=== PATIENT | female | born 1960 | race African-American/Black ===

== ENCOUNTER 2017-10-06 11:52 | Emergency (ER) | payer MEDICAID ==
[~2017-10-06] VITALS: Ht 177.8 cm; Wt 67.3 kg
[~2017-10-06 11:52] MED LIST: AMOXICILLIN 8751 TAB PO; COLACE 100100 MG/CAP PO; GLUCAGON EMERGEN1 M1 IM; GLUCOPHAGE; GLUCOPHAGE XR500 M1 PO; GLUCOPHAGE500 MG/TAB PO; LASIX 20MG TABL20 MG PO; LASIX 40MG TABL40 MG PO; LEADER CLE17 GM/Dose PO; LEVAQUIN 5500 MG/TA1 PO; LEVEMIR FLEX100 U/ML SQ; LEVEMIR100 U/ML SQ; LIDODERM 5% PATC1 EA TP; LISINOPRIL20 MG PO; LOVENOX 4040 MG/0.4 SQ; MIRALAX PA17 GM/Dose PO; NORVASC 5MG5 MG/TAB PO; NOVLOG SQ; NOVOLOG 100U100 U/M1 SQ; NOVOLOG FLEX100 U/ML SQ; PERCOCET 325 MG1 TA2 PO; PRINIVIL10 MG PO; PRINIVIL20 MG PO; PROTONIX 40MG T40 MG PO; SENNA-LAX8.6 MG PO; TYLENOL 325MG325 MG PO; ULTRAM 50MG TAB50 MG PO
[2017-10-06 11:54] VITALS: BP 122/73; TEMP 99
[2017-10-06 12:22] LABS: BASO # 0.1 (0.0-0.2); BASO % 0.9 % (0.0-2.0); EOS # 0.2 (0.0-0.7); EOS % 3.7 % (0-4.0); GRAN # 3.6 (1.4-6.5); GRAN % 55.5 % (42.2-75.2); HEMATOCRIT 29.1 % (37.0-47.0); HEMOGLOBIN 9.3 g/dl (12.5-16.0); LYMPH # 2.1 (1.2-3.4); LYMPH % 32.6 % (20.0-51.0); MEAN CELL VOLUME 85 fl (80.0-100.0); MEAN CORPUSCULAR HEMOGLOBIN 27 pg (27.0-31.0); MEAN CORPUSCULAR HGB CONC 32 g/dl (33.0-37.0); MEAN PLATELET VOLUME 10.1 fl (7.4-10.4); MONO # 0.5 (0.1-0.6); MONO % 7.1 % (1.7-9.3); PLATELET COUNT 250 K/mm3 (130-400); RED BLOOD COUNT 3.41 M/mm3 (4.10-5.30); REDCELL DISTRIBUTION WIDTH-CV 13.5 % (11.5-14.5)
[2017-10-06 12:35] LABS: ALBUMIN 3.7 gm/dL (3.5-5.0); BILIRUBIN,TOTAL 0.4 mg/dL (0.0-1.0); C-REACTIVE PROTEIN 0.8 mg/dL (0.0-0.9); CALCIUM 9.1 mg/dL (8.4-10.2); CREATININE, serum 0.86 mg/dL (0.52-1.25); POTASSIUM 3.8 mmol/L (3.4-5.0)
[2017-10-06 12:42] LABS: ERYTHROCYTE SEDIMENTATION RATE 96 mm/hr (0-30)
[2017-10-06 13:43] VITALS: PULSE 67
== END 2017-10-06 13:45 | disposition home or self-care (01) ==
LOC: COL.ER 11:52
PROVIDERS: Physician Assistant
DX: S61.001A Unspecified open wound of right thumb without damage to nail, initial encounter (principal); I10 Essential (primary) hypertension; E78.5 Hyperlipidemia, unspecified; E11.40 Type 2 diabetes mellitus with diabetic neuropathy, unspecified; Z98.890 Other specified postprocedural states; Z87.891 Personal history of nicotine dependence; Z79.4 Long term (current) use of insulin; X58.XXXA Exposure to other specified factors, initial encounter
CPT/HCPCS: J7030

== ENCOUNTER 2018-06-18 19:40 | Emergency (ER) | payer MEDICAID, OTHER ==
[~2018-06-18] VITALS: Ht 177.8 cm; Wt 63.6 kg
[2018-06-18 19:58] VITALS: TEMP 98.6
[2018-06-18] MEDS ORDERED: NEURONTIN300 MG/CAP PO (20:45)
[2018-06-18] MEDS ORDERED: SYNTHROID 0.0.025 MG PO (20:45)
[2018-06-18] MEDS ORDERED: LANTUS100 U/ML SQ (20:46)
[2018-06-18 21:41] LABS: BASO % 0.6 % (0.0-2.0); EOS # 0.2 (0.0-0.7); EOS % 2.6 % (0-4.0); GRAN # 4.5 (1.4-6.5); LYMPH # 1.6 (1.2-3.4); LYMPH % 23.2 % (20.0-51.0); MEAN CELL VOLUME 87 fl (80.0-100.0); MEAN CORPUSCULAR HGB CONC 32 g/dl (33.0-37.0); MEAN PLATELET VOLUME 10.4 fl (7.4-10.4); MONO # 0.6 (0.1-0.6); MONO % 8.5 % (1.7-9.3); PLATELET COUNT 256 K/mm3 (130-400)
[2018-06-18 21:44] LABS: HEMATOCRIT 30.4 % (37.0-47.0); HEMOGLOBIN 9.6 g/dl (12.5-16.0); MEAN CORPUSCULAR HEMOGLOBIN 27 pg (27.0-31.0)
[2018-06-18 21:55] LABS: ALBUMIN 3.8 gm/dL (3.5-5.0); BILIRUBIN,TOTAL 0.4 mg/dL (0.0-1.0); C-REACTIVE PROTEIN 2.2 mg/dL (0.0-0.9); CALCIUM 8.8 mg/dL (8.4-10.2); CREATININE, serum 0.96 mg/dL (0.52-1.25); POTASSIUM 4.4 mmol/L (3.4-5.0); TOTAL PROTEIN 8.5 gm/dL (6.4-8.2)
[2018-06-18 22:35] LABS: COLLECTION METHOD CLEAN CATCH
[2018-06-18 22:42] LABS: PH 7 (5-8); SQUAMOUS EPITHELIAL 0-2 /hpf; URINE APPEARANCE Clear; URINE BACTERIA None Seen /hpf; URINE BILIRUBIN Negative (NEGATIVE); URINE BLOOD 1+ (NEGATIVE); URINE COLOR Colorless; URINE GLUCOSE 3+ (NEGATIVE); URINE KETONE Negative (NEGATIVE); URINE LEUKOCYTE ESTERASE Trace (NEGATIVE); URINE NITRATE Negative (NEGATIVE); URINE PROTEIN(semi-quant) Negative (NEGATIVE); URINE UROBILINOGEN Negative (NEGATIVE)
[2018-06-18] MEDS ORDERED: ZESTORETIC 25 M1 TAB PO (23:36)
[2018-06-19 02:20] VITALS: BP 182/114; PULSE 76
== END 2018-06-19 02:23 | disposition home or self-care (01) ==
LOC: COL.ER 19:40
PROVIDERS: Emergency Medicine
DX: S91.101A Unspecified open wound of right great toe without damage to nail, initial encounter (principal); I10 Essential (primary) hypertension; D64.9 Anemia, unspecified; E11.40 Type 2 diabetes mellitus with diabetic neuropathy, unspecified; E11.65 Type 2 diabetes mellitus with hyperglycemia; Z79.4 Long term (current) use of insulin; X58.XXXA Exposure to other specified factors, initial encounter
CPT/HCPCS: J1815; J7030

== ENCOUNTER 2020-02-23 11:20 | Emergency (ER) | payer MEDICAID ==
[~2020-02-23] VITALS: Ht 177.8 cm; Wt 70.9 kg
[~2020-02-23 11:20] MED LIST changes: +LANTUS100 U/ML SQ; +NEURONTIN300 MG/CAP PO; +SYNTHROID 0.0.025 MG PO; +ZESTORETIC 25 M1 TAB PO
[2020-02-23 12:17] LABS: BASO % 0.2 % (0.0-2.0); EOS % 0.4 % (0-4.0); GRAN # 3.7 (1.4-6.5); GRAN % 70.9 % (42.2-75.2); HEMOGLOBIN 11.1 g/dl (12.5-16.0); LYMPH # 1.1 (1.2-3.4); LYMPH % 20.5 % (20.0-51.0); MEAN CELL VOLUME 88 fl (80.0-100.0); MEAN CORPUSCULAR HEMOGLOBIN 28 pg (27.0-31.0); MEAN CORPUSCULAR HGB CONC 32 g/dl (33.0-37.0); MEAN PLATELET VOLUME 10.3 fl (7.4-10.4); MONO # 0.4 (0.1-0.6); MONO % 7.4 % (1.7-9.3); PLATELET COUNT 219 K/mm3 (130-400); RED BLOOD COUNT 3.98 M/mm3 (4.10-5.30)
[2020-02-23 12:19] LABS: HEMATOCRIT 35.1 % (37.0-47.0)
[2020-02-23 12:27] LABS: ALANINE AMINOTRANSFERASE 39 U/L (4-34); ALBUMIN 4.5 gm/dL (3.5-5.0); ALKALINE PHOSPHATASE 165 U/L (50-136); ANION GAP 14 mmol/L (7-16); AST,SGOT 33 U/L (15-37); BILIRUBIN,TOTAL 0.9 mg/dL (0.0-1.0); BLOOD UREA NITROGEN 22 mg/dL (7-17); CALCIUM 9.4 mg/dL (8.4-10.2); CARBON DIOXIDE 27 mmol/L (22-30); CHLORIDE 98 mmol/L (98-107); CREATININE, serum 1.34 (0.52-1.25); GLUCOSE 205 mg/dL (74-106); LIPASE 55 U/L (23-300); SODIUM 139 mmol/L (137-145); TOTAL PROTEIN 9.1 gm/dL (6.4-8.2)
[2020-02-23 12:38] LABS: TROPONIN-I < 0.012 ng/mL (0.000-0.035)
[2020-02-23 12:41] LABS: COLLECTION METHOD CLEAN CATCH
[2020-02-23 12:49] LABS: MUCOUS Present /lpf; PH 8 (5-8); SQUAMOUS EPITHELIAL 0-2 /hpf; URINE APPEARANCE Clear; URINE BACTERIA None Seen /hpf; URINE BILIRUBIN Negative (NEGATIVE); URINE BLOOD 1+ (NEGATIVE); URINE COLOR Colorless; URINE GLUCOSE 2+ (NEGATIVE); URINE KETONE Trace (NEGATIVE); URINE LEUKOCYTE ESTERASE Negative (NEGATIVE); URINE NITRATE Negative (NEGATIVE); URINE PROTEIN(semi-quant) 2+ (NEGATIVE); URINE UROBILINOGEN Negative (NEGATIVE); URINE WBC 0-2 /hpf
[2020-02-23] MEDS ORDERED: PHENERGAN25 MG RC (14:51)
[2020-02-23] MEDS ORDERED: PROTONIX 40MG T40 MG PO (14:51)
[2020-02-23] MEDS ORDERED: BENTYL 20MG20 MG/TAB PO (14:51)
[2020-02-23 15:25] VITALS: BP 146/107; PULSE 90; TEMP 98
== END 2020-02-23 15:30 | disposition home or self-care (01) ==
LOC: COL.ER 11:20
PROVIDERS: Emergency Medicine
DX: R94.4 Abnormal results of kidney function studies (principal); R10.9 Unspecified abdominal pain; E11.51 Type 2 diabetes mellitus with diabetic peripheral angiopathy without gangrene; I10 Essential (primary) hypertension; Z88.0 Allergy status to penicillin; Z88.2 Allergy status to sulfonamides; Z79.4 Long term (current) use of insulin

== ENCOUNTER → 2020-05-22 | Outpatient (CLI) | payer MEDICAID ==
[~2020-05-22] MED LIST changes: +BENTYL 20MG20 MG/TAB PO; +PHENERGAN25 MG RC
== END ==
LOC: COL.RAD 10:19
DX: K29.70 Gastritis, unspecified, without bleeding (principal); K21.9 Gastro-esophageal reflux disease without esophagitis

== ENCOUNTER 2020-06-15 13:59 | Emergency (ER) | payer MEDICAID ==
[~2020-06-15] VITALS: Ht 177.8 cm; Wt 59.1 kg
[2020-06-15 14:58] LABS: COLLECTION METHOD CLEAN CATCH
[2020-06-15 15:01] LABS: BASO % 1.1 % (0.0-2.0); EOS # 0.1 (0.0-0.7); EOS % 1.9 % (0-4.0); GRAN # 1.8 (1.4-6.5); GRAN % 48.1 % (42.2-75.2); HEMOGLOBIN 10.3 g/dl (12.5-16.0); LYMPH # 1.6 (1.2-3.4); LYMPH % 41.9 % (20.0-51.0); MEAN CELL VOLUME 90 fl (80.0-100.0); MEAN CORPUSCULAR HEMOGLOBIN 29 pg (27.0-31.0); MEAN CORPUSCULAR HGB CONC 32 g/dl (33.0-37.0); MEAN PLATELET VOLUME 11.4 fl (7.4-10.4); MONO # 0.3 (0.1-0.6); MONO % 6.7 % (1.7-9.3); PLATELET COUNT 231 K/mm3 (130-400); RED BLOOD COUNT 3.54 M/mm3 (4.10-5.30); REDCELL DISTRIBUTION WIDTH-CV 14.2 % (11.5-14.5)
[2020-06-15 15:06] LABS: HEMATOCRIT 31.9 % (37.0-47.0)
[2020-06-15 15:21] LABS: PH 6 (5-8); SQUAMOUS EPITHELIAL 0-2 /hpf; URINE APPEARANCE Clear; URINE BACTERIA None Seen /hpf; URINE BILIRUBIN Negative (NEGATIVE); URINE BLOOD Negative (NEGATIVE); URINE COLOR Straw; URINE GLUCOSE 3+ (NEGATIVE); URINE KETONE 1+ (NEGATIVE); URINE LEUKOCYTE ESTERASE Negative (NEGATIVE); URINE NITRATE Negative (NEGATIVE); URINE PROTEIN(semi-quant) 1+ (NEGATIVE); URINE RBC 0-2 /hpf; URINE UROBILINOGEN Negative (NEGATIVE)
[2020-06-15 15:44] LABS: ALANINE AMINOTRANSFERASE 10 U/L (4-34); ALKALINE PHOSPHATASE 93 U/L (50-136); AMYLASE 43 U/L (30-110); ANION GAP 19 mmol/L (7-16); AST,SGOT 18 U/L (15-37); BILIRUBIN,TOTAL 0.5 mg/dL (0.0-1.0); BLOOD UREA NITROGEN 23 mg/dL (7-17); CALCIUM 9.2 mg/dL (8.4-10.2); CARBON DIOXIDE 18 mmol/L (22-30); CHLORIDE 99 mmol/L (98-107); CREATININE, serum 1.42 (0.52-1.25); LIPASE 106 U/L (23-300); POTASSIUM 4.5 mmol/L (3.4-5.0); SODIUM 136 mmol/L (137-145); TOTAL PROTEIN 8.3 gm/dL (6.4-8.2)
[2020-06-15 15:45] LABS: C-REACTIVE PROTEIN < 0.5 mg/dL (0.0-0.9)
[2020-06-15 15:46] LABS: GLUCOSE 550 mg/dL (74-106)
[2020-06-15 16:23] LABS: ARTERIAL BLD GAS O2 SATURATION 95.1 % (92-100); ARTERIAL BLD GAS TCO2 CT 18.8; ARTERIAL BLOOD GAS BASE EXCESS -8.4 (-2-2); ARTERIAL BLOOD GAS HCO3 17.6 meq/L (22-26); ARTERIAL BLOOD GAS PCO2 37.9 mmHg (35-45); ARTERIAL BLOOD GAS PO2 81.2 mmHg (80-100); ARTERIAL BLOOD GAS pH 7.29 (7.35-7.45)
[2020-06-15 17:32] LABS: CALCIUM 8.8 mg/dL (8.4-10.2); CREATININE, serum 1.17 (0.52-1.25); POTASSIUM 4.4 mmol/L (3.4-5.0)
[2020-06-15 20:12] VITALS: BP 148/99; PULSE 88; TEMP 97.4
== END 2020-06-15 20:25 | disposition short-term general hospital (02) ==
LOC: COL.ER 13:59
PROVIDERS: Emergency Medicine; Nurse Practitioner Primary Care
DX: E11.10 Type 2 diabetes mellitus with ketoacidosis without coma (principal); E11.40 Type 2 diabetes mellitus with diabetic neuropathy, unspecified; T38.3X6A Underdosing of insulin and oral hypoglycemic [antidiabetic] drugs, initial encounter; I10 Essential (primary) hypertension; E03.9 Hypothyroidism, unspecified; Z88.0 Allergy status to penicillin; Z91.128 Patient's intentional underdosing of medication regimen for other reason; Z88.2 Allergy status to sulfonamides; Z87.891 Personal history of nicotine dependence; Z79.4 Long term (current) use of insulin; Z79.890 Hormone replacement therapy
CPT/HCPCS: J1815; J7030

== ENCOUNTER 2021-06-14 13:00 | Inpatient (IN) | payer MEDICAID ==
[~2021-06-14] VITALS: Ht 177.8 cm; Wt 66.1 kg
[~2021-06-14 13:00] MED LIST changes: -LANTUS100 U/ML SQ
[2021-06-14] MEDS ORDERED: ERY-TAB500 MG PO (14:41)
[2021-06-14 15:38] LABS: BASO % 0.8 % (0.0-2.0); EOS # 0.2 K/mm3 (0.0-0.7); EOS % 4.4 % (0.0-4.0); GRAN # 3.2 K/mm3 (1.4-6.5); GRAN % 61.6 % (42.2-75.2); LYMPH # 1.3 K/mm3 (1.2-3.4); LYMPH % 24.6 % (20.0-51.0); MEAN CELL VOLUME 86 fl (80.0-100.0); MEAN CORPUSCULAR HGB CONC 31 g/dl (33.0-37.0); MEAN PLATELET VOLUME 11.5 fl (7.4-10.4); MONO # 0.4 K/mm3 (0.1-0.6); PLATELET COUNT 278 K/mm3 (130-400); RED BLOOD COUNT 3.03 M/mm3 (4.10-5.30); REDCELL DISTRIBUTION WIDTH-CV 13.6 % (11.5-14.5)
[2021-06-14 15:41] LABS: HEMOGLOBIN 8.1 g/dl (12.5-16.0); MEAN CORPUSCULAR HEMOGLOBIN 27 pg (27-31)
[2021-06-14 16:03] LABS: ACETONE,SERUM SMALL; ALANINE AMINOTRANSFERASE 19 U/L (0-55); ALBUMIN 3.1 gm/dL (3.4-4.8); ALKALINE PHOSPHATASE 121 U/L (40-150); ANION GAP 21 mmol/L (7-16); AST,SGOT 14 U/L (5-34); BILIRUBIN,TOTAL 0.3 mg/dL (0.2-1.2); BLOOD UREA NITROGEN 25 mg/dL (10-20); CALCIUM 9.5 mg/dL (8.4-10.2); CARBON DIOXIDE 17 mmol/L (23-31); CHLORIDE 100 mmol/L (98-107); CREATININE, serum 2.39 mg/dL (0.57-1.11); LIPASE 20 U/L (8-78); POTASSIUM 4.9 mmol/L (3.5-4.5); SODIUM 138 mmol/L (136-145); TOTAL PROTEIN 9.1 gm/dL (6.2-8.1)
[2021-06-14 16:10] LABS: GLUCOSE 626 mg/dL (70-99)
[2021-06-14 18:45] LABS: CREATININE, serum 2.15 mg/dL (0.57-1.11); POTASSIUM 3.9 mmol/L (3.5-4.5)
[2021-06-14 19:12] LABS: TSH w REFLEX 1.582 uIU/mL (0.350-4.940)
[2021-06-14 19:20] LABS: TROPONIN-I 0.09 ng/mL (0.00-0.033)
--- NOTE | 2021-06-14 19:27 | NUR ---
Received report from ED nurse, Deisi.
[2021-06-14 19:39] VITALS: BP 157/96; PULSE 68; TEMP 98.2
--- NOTE | 2021-06-14 19:39 | NUR ---
Patient arrives to ICU room 6 via ED stretcher. Patient is alert and oriented. She is able to pivot transfer with one person assist, tolerating well. Initial vitals within normal limits; she is on room air. She reports 8/10 sharp stomach pain that is worse with movement and position changes. She arrives receiving insulin drip at 3 units/hr to a peripheral 22G to the LAC. Last BG of 324 at 1920. She also has a saline locked 20G peripheral IV to the left wrist. Vicky, hospitalist, aware of patient's arrival.
--- NOTE | 2021-06-14 20:00 | NUR ---
Patient's belongings include a single brown right shoe and black blanket. Patient reports having reading glasses and bilateral hearing aids, but that she did not bring either with her. She denies having dentures, partials, plates, or removable jewelry on her person at this time. She states she did not bring a purse, wallet, or cellphone with her.
[2021-06-14 20:48] LABS: COLLECTION METHOD CLEAN CATCH
[2021-06-14 20:48] LABS: CALCIUM 9.2 mg/dL (8.4-10.2); CREATININE, serum 2.04 mg/dL (0.57-1.11); MAGNESIUM 1.7 mg/dL (1.6-2.6); POTASSIUM 3.7 mmol/L (3.5-4.5)
[2021-06-14 20:57] LABS: PH 6 (5-8); SQUAMOUS EPITHELIAL 0-2 /hpf (0-10); URINE APPEARANCE Clear (CLEAR/HAZY); URINE BACTERIA None Seen /hpf (NONE SEEN); URINE BILIRUBIN Negative (NEGATIVE); URINE BLOOD Negative (NEGATIVE); URINE COLOR Straw (YELLOW); URINE GLUCOSE 3+ (NEGATIVE); URINE KETONE 1+ (NEGATIVE); URINE LEUKOCYTE ESTERASE Negative (NEGATIVE); URINE NITRATE Negative (NEGATIVE); URINE PROTEIN(semi-quant) 2+ (NEGATIVE); URINE RBC 0-2 /hpf (0-2); URINE UROBILINOGEN Negative (NEGATIVE)
[2021-06-14 22:19] LABS: CALCIUM 8.7 mg/dL (8.4-10.2); POTASSIUM 3.6 mmol/L (3.5-4.5)
[2021-06-15] VITALS: BP 115/63; PULSE 63; TEMP 97.9
[2021-06-15 00:39] LABS: CALCIUM 8.5 mg/dL (8.4-10.2); CREATININE, serum 1.99 mg/dL (0.57-1.11); POTASSIUM 3.5 mmol/L (3.5-4.5)
[2021-06-15 02:39] LABS: CALCIUM 8.5 mg/dL (8.4-10.2); CREATININE, serum 1.95 mg/dL (0.57-1.11); POTASSIUM 3.5 mmol/L (3.5-4.5)
[2021-06-15 04:00] VITALS: BP 138/88; PULSE 63; TEMP 97.6
[2021-06-15 05:58] LABS: MEAN CELL VOLUME 89 fl (80.0-100.0); MEAN CORPUSCULAR HGB CONC 30 g/dl (33.0-37.0); MEAN PLATELET VOLUME 10.2 fl (7.4-10.4); PLATELET COUNT 266 K/mm3 (130-400); RED BLOOD COUNT 2.76 M/mm3 (4.10-5.30); REDCELL DISTRIBUTION WIDTH-CV 13.7 % (11.5-14.5)
[2021-06-15 05:59] LABS: HEMATOCRIT 24.5 % (37.0-47.0); HEMOGLOBIN 7.4 g/dl (12.5-16.0); MEAN CORPUSCULAR HEMOGLOBIN 27 pg (27-31)
[2021-06-15 06:06] LABS: ALBUMIN 2.6 gm/dL (3.4-4.8); TOTAL PROTEIN 7.5 gm/dL (6.2-8.1)
[2021-06-15 08:00] VITALS: BP 186/115; PULSE 68; TEMP 98
[2021-06-15 11:27] LABS: CALCIUM 8.5 mg/dL (8.4-10.2); CREATININE, serum 1.61 mg/dL (0.57-1.11); POTASSIUM 4.7 mmol/L (3.5-4.5)
[2021-06-15 12:00] VITALS: BP 193/109; PULSE 65; TEMP 98
--- NOTE | 2021-06-15 15:00 | NUR ---
SW met with patient at bedside to complete intake. Patient's Rayshawn ([phone]) present at bedside.Patient reports that she currently lives at home with her . She reports that her helps her with some of her ADL's but that she does have a home health service coming in to also provide her care that was established after her last admission from [facility]. Both the patient and her are unaware of what agency it is but the patient states that her daughter would know. Patient utilizes a wheelchair and a walker at home to assist with ambulation. She has no oxygen needs at home. PCP is Dr. Rios and she utlizes [facility] pharmacy for medications with no cost difficulty. Patient reports that she does have a DPOA- estbalished listing both her Rayshawn and her daughter Amanda Mcgraw ([phone]) and that [facility] would have a copy.
[2021-06-15 16:00] VITALS: BP 150/87; PULSE 68; TEMP 97.7
--- NOTE | 2021-06-15 19:00 | NUR ---
Received report from SUN Bolton.
[2021-06-15 20:00] VITALS: BP 128/74; PULSE 74; TEMP 99.1
[2021-06-16] VITALS: BP 125/81; PULSE 72; TEMP 98.6
[2021-06-16 04:00] VITALS: BP 158/93; PULSE 69; TEMP 98.1
[2021-06-16 05:31] LABS: BASO % 0.6 % (0.0-2.0); EOS # 0.3 K/mm3 (0.0-0.7); EOS % 5.3 % (0.0-4.0); GRAN # 2.5 K/mm3 (1.4-6.5); GRAN % 50.7 % (42.2-75.2); LYMPH # 1.4 K/mm3 (1.2-3.4); LYMPH % 29.4 % (20.0-51.0); MEAN CELL VOLUME 89 fl (80.0-100.0); MEAN CORPUSCULAR HGB CONC 30 g/dl (33.0-37.0); MEAN PLATELET VOLUME 10.4 fl (7.4-10.4); MONO # 0.7 K/mm3 (0.1-0.6); MONO % 13.6 % (1.7-9.3); PLATELET COUNT 236 K/mm3 (130-400); RED BLOOD COUNT 3.02 M/mm3 (4.10-5.30); REDCELL DISTRIBUTION WIDTH-CV 14.1 % (11.5-14.5)
[2021-06-16 05:42] LABS: CALCIUM 8.6 mg/dL (8.4-10.2); CREATININE, serum 1.73 mg/dL (0.57-1.11); POTASSIUM 4.5 mmol/L (3.5-4.5)
[2021-06-16 06:08] LABS: HEMATOCRIT 26.9 % (37.0-47.0); HEMOGLOBIN 8.1 g/dl (12.5-16.0); MEAN CORPUSCULAR HEMOGLOBIN 27 pg (27-31)
--- NOTE | 2021-06-16 07:42 | NUR ---
RECEIVED BEDSIDE SHIFT REPORT FROM SUN HUBER. PATIENT IN BED RESTING WITH EYES CLOSED. CALL LIGHT WITHIN REACH. PATIENT HYPERTENSIVE BUT OTHERWISE STABLE. INT SITES INTACT. NO COMPLAINTS AT THIS TIME.
[2021-06-16 08:00] VITALS: BP 102/65; PULSE 70; TEMP 97.8
--- NOTE | 2021-06-16 09:07 | NUR ---
DR. KEITH PHYSICIAN'S ROUGHER MERCHANT MILL AT BEDSIDE. DISCUSSED A PLAN OF CARE FOR MANAGING ABDOMINAL PAIN. SAID HE WOULD BE BACK TO ANSWER QUESTIONS THIS AFTERNOON WHEN FAMILY ARRIVES.
--- NOTE | 2021-06-16 09:39 | NUR ---
RECEIVED CALL FROM HE VELEZ WANTING TO PUT IN FOR A SURGICAL CONSULT. CONFIRMED WITH DOCTOR FOR REASON AND WHEN TO BE SEEN. PLACED ORDERS AND CALLED CONSULT TO DR. WHATLEY
--- NOTE | 2021-06-16 10:32 | NUR ---
DR. WHATLEY AT BEDSIDE. DISCUSSED PLAN FOR SURGERY.
[2021-06-16 12:00] VITALS: BP 126/84; PULSE 65
--- NOTE | 2021-06-16 12:45 | NUR ---
DR. TERESA AT BEDSIDE. DISCUSSED PLAN OF CARE AND PLAN FOR SURGERY THIS WEEK. UPDATE GIVEN
--- NOTE | 2021-06-16 14:09 | NUR ---
SPOKE TO DONTAE (DAUGHTER) ON THE PHONE AND GAVE UPDATE REGARDING CURRENT PATIENT'S STATUS AND PLAN OF CARE.
[2021-06-16 16:00] VITALS: BP 139/82; PULSE 71; TEMP 98.2
[2021-06-16 19:41] VITALS: BP 132/71; PULSE 74; TEMP 98.7
[2021-06-17 00:40] VITALS: BP 168/90; PULSE 73; TEMP 97.4
[2021-06-17 04:13] VITALS: BP 149/94; PULSE 73; TEMP 97.8
--- NOTE | 2021-06-17 06:00 | NUR ---
ASSESSMENT COMPLETE FOR THIS SHIFT. PT RESTING IN BED TALKING TO HER SON OVER THE PHONE. PT DENIED PALPITATIONS, N,V,D, SOB OR DIZZINESS. AROUND 0240HRS, PT COMPLAINED OF ABD PAIN. PT GIVEN MORPHINE FOR PAIN. PT FELT MORPHINE RELIEVED PAIN. PT EXPRESSED NO OTHER NEEDS AT THIS TIME. CALL LIGHT WITHIN REACH.
[2021-06-17 06:03] LABS: BASO % 0.7 % (0.0-2.0); EOS # 0.2 K/mm3 (0.0-0.7); EOS % 4.5 % (0.0-4.0); GRAN # 2.3 K/mm3 (1.4-6.5); GRAN % 52.3 % (42.2-75.2); LYMPH # 1.4 K/mm3 (1.2-3.4); LYMPH % 30.9 % (20.0-51.0); MEAN CELL VOLUME 90 fl (80.0-100.0); MEAN CORPUSCULAR HGB CONC 30 g/dl (33.0-37.0); MEAN PLATELET VOLUME 9.9 fl (7.4-10.4); MONO # 0.5 K/mm3 (0.1-0.6); MONO % 11.4 % (1.7-9.3); PLATELET COUNT 261 K/mm3 (130-400); RED BLOOD COUNT 3.12 M/mm3 (4.10-5.30); REDCELL DISTRIBUTION WIDTH-CV 14.2 % (11.5-14.5)
[2021-06-17 06:16] LABS: ANION GAP 9 mmol/L (7-16); BLOOD UREA NITROGEN 16 mg/dL (10-20); CALCIUM 8.9 mg/dL (8.4-10.2); CARBON DIOXIDE 24 mmol/L (23-31); CHLORIDE 106 mmol/L (98-107); CREATININE, serum 1.74 mg/dL (0.57-1.11); GLUCOSE 153 mg/dL (70-99); POTASSIUM 4.4 mmol/L (3.5-4.5); SODIUM 139 mmol/L (136-145)
[2021-06-17 06:30] LABS: TROPONIN-I < 0.010 ng/mL (0.00-0.033)
[2021-06-17 06:33] LABS: HEMATOCRIT 28.1 % (37.0-47.0); HEMOGLOBIN 8.3 g/dl (12.5-16.0); MEAN CORPUSCULAR HEMOGLOBIN 27 pg (27-31)
[2021-06-17 08:55] VITALS: BP 160/82; PULSE 71; TEMP 98
[2021-06-17] MEDS ORDERED: AMLODIPINE BESYLATE/ PO (09:58)
[2021-06-17] MEDS ORDERED: SYNTHROID0.1 MG/TAB PO (09:59)
[2021-06-17] MEDS ORDERED: REGLAN 10MG10 MG/TAB PO (10:03)
[2021-06-17] MEDS ORDERED: TYLENOL 325MG325 MG PO (10:04)
[2021-06-17] MEDS ORDERED: COREG12.5 MG PO (10:05)
[2021-06-17] MEDS ORDERED: GRALISE300 MG PO (10:07)
[2021-06-17] MEDS ORDERED: NOVOLOG FLEX100 U/ML SQ (10:09)
[2021-06-17] MEDS ORDERED: ZOLOFT 100MG100 MG PO (10:13)
[2021-06-17] MEDS ORDERED: CATAPRES-TTS 10.1 M1 TD (10:15)
--- NOTE | 2021-06-17 10:42 | NUR ---
PT SITTING UP IN BED. MORNING MEDICATIONS GIVEN. SHIFT ASSESSMENT COMPLETED. PT REPORTS ABDOMINAL PAIN IN THE CENTER OF ABDOMEN. UPDATED ON POC. WILL CONTINUE TO MONITOR.
[2021-06-17 11:31] VITALS: BP 169/91; PULSE 73; TEMP 98
--- NOTE | 2021-06-17 16:13 | NUR ---
Real Estate Firm Manager contacted Hospitalist and requested PT/OT. SW then contacted patient's daughter to inquire about Home Health. Patient's daughter believes patient receives services through [facility] but will check on this and follow up.
--- NOTE | 2021-06-17 16:23 | NUR ---
Converter Skimmer spoke with Sandy at [facility] who confirmed patient receives services through them.
[2021-06-17 17:27] VITALS: BP 130/74; PULSE 70; TEMP 97.9
--- NOTE | 2021-06-17 18:27 | NUR ---
CONSENT SIGNED AND PLACED ON PT CHART. PT TOLERATING SOME OF DINNER. POC REVIEWED. WILL PASS ALONG REPORT TO ONCOMING RN.
[2021-06-17 20:56] VITALS: BP 127/67; PULSE 66; TEMP 97.9
[2021-06-18] VITALS (14 sets, daily range): BP systolic 107–177; BP diastolic 57–91; PULSE 61–76; TEMP 97.3–98.6
--- NOTE | 2021-06-18 06:30 | NUR ---
ASSESSMENT COMPLETE FOR THIS SHIFT. PT RESTING IN BED TALKING TO FAMILY OVER THIS PHONE. PT COMPLAINED OF ABD PAIN. PT GIVEN TYLENOL FOR PAIN. PT STATED SHE FELT THE TYLENOL WAS NOT EFFECTIVE, HOWEVER, THE MORPHINE GAVE HER NIGHTMARES, SO SHE DID NOT WANT ANYMORE OF THAT. PT DENIED PALPITATIONS, N,V,D, SOB OR DIZZINESS. PT'S CALLED, CONCERNED ABOUT THE EFFECTS OF THE MORPHINE, GIVEN THE NIGHT BEFORE. I ASSURED HIM, PT WAS NOT GIVEN ANY MORPHINE TONIGHT. PT HAS BEEN NPO AFTER MIDNIGHT. PT EXPRESSED NO OTHER NEEDS AT THIS TIME. CALL LIGHT WITHIN REACH.
[2021-06-18 06:48] LABS: BASO % 0.8 % (0.0-2.0); EOS # 0.2 K/mm3 (0.0-0.7); EOS % 4.5 % (0.0-4.0); GRAN # 1.3 K/mm3 (1.4-6.5); GRAN % 35.3 % (42.2-75.2); LYMPH # 1.8 K/mm3 (1.2-3.4); LYMPH % 47.5 % (20.0-51.0); MEAN CORPUSCULAR HGB CONC 32 g/dl (33.0-37.0); MEAN PLATELET VOLUME 11.1 fl (7.4-10.4); MONO # 0.4 K/mm3 (0.1-0.6); MONO % 11.6 % (1.7-9.3); PLATELET COUNT 202 K/mm3 (130-400); RED BLOOD COUNT 2.68 M/mm3 (4.10-5.30); REDCELL DISTRIBUTION WIDTH-CV 13.7 % (11.5-14.5)
[2021-06-18 06:52] LABS: HEMATOCRIT 22.7 % (37.0-47.0); HEMOGLOBIN 7.3 g/dl (12.5-16.0); MEAN CORPUSCULAR HEMOGLOBIN 27 pg (27-31)
[2021-06-18 06:53] LABS: MEAN CELL VOLUME 85 fl (80.0-100.0)
[2021-06-18 06:56] LABS: CREATININE, serum 2.12 mg/dL (0.57-1.11); POTASSIUM 4.1 mmol/L (3.5-4.5)
--- NOTE | 2021-06-18 08:08 | NUR ---
PT RESTING IN BED. MORNING MEDICATIONS HELD, PT NPO SINCE MIDNIGHT FOR PROCEDURE. SHIFT ASSESSMENT COMPLETED. PT REPORTS ABDOMINAL PAIN AND NAUSEA, NO EMESIS. STATES SHE DID NOT SLEEP WELL DUE TO HALLUCINATIONS AFTER SHE RECIEVED A DOSE OF MORPHINE LAST NIGHT. MEDICATION ADDED TO THE ALLERGY LIST. DENIES ANY NEEDS AT THIS TIME. WILL CONTINUE TO MONITOR.
--- NOTE | 2021-06-18 13:17 | NUR ---
PT OFF UNIT FOR PROCEDURE AT THIS TIME.
--- NOTE | 2021-06-18 16:18 | NUR ---
PT ARRIVED BACK ON UNIT FOLLOWING PROCEDURE. PLACED ON POST OP VITALS, VSS. PT SLEEPING AT THIS TIME. WILL CONTINUE TO MONITOR.
--- NOTE | 2021-06-18 18:26 | NUR ---
PT STILL RESTING IN BED AND IS VERY DROWSY. REFUSES DINNER AND EVENING MEDICATIONS. B/P HIGH, HYDRALIZINE ADMINISTERED THROUGH IV. ALL OTHER VSS. WILL PASS ALONG REPORT TO ONCOMING RN.
--- NOTE | 2021-06-18 20:00 | NUR ---
Initial shift assessment done- VSS, resting quietly, denies pain, bandaids x3 to abdomen - dry and intact, no bowel sounds at this time, denies flatus, o2 at 1L/nc-sats 93-95%, has L/BKA, Tele on, C&DB done- IV fluids of NS at 75cc/hr. has not taken any po yet-still due to void post op
--- NOTE | 2021-06-18 23:20 | NUR ---
Up to BSC with 2 assists- voided without problems- FENA obtained per order- lab called will come and draw labs now- back to bed, o2 at 1L/nc, did take a few sips of water- states is nauseated- Zofran given- denies pain
[2021-06-19 00:35] LABS: CREATININE, serum 2.28 mg/dL (0.57-1.11)
[2021-06-19 01:21] LABS: FRACTIONAL EXCRETION OF NA+ 0.98 %
[2021-06-19 03:01] VITALS: BP 122/58; PULSE 77; TEMP 97.3
--- NOTE | 2021-06-19 04:54 | NUR ---
Has been resting quietly for the past 2-3 hours-- VSS, IV fluids remain at 75cc/hr, Tele on, Bandaids dry and intact to abd-
--- NOTE | 2021-06-19 06:00 | NUR ---
Taking some ice chips this morning- Abd remains soft-denies flatus and no bowel sounds heard at this time-- did do some c&db at this time. Bandaids x3 dry and intact to abdomen
[2021-06-19 06:35] LABS: BASO % 0.1 % (0.0-2.0); GRAN # 5.3 K/mm3 (1.4-6.5); GRAN % 78.2 % (42.2-75.2); LYMPH # 1.2 K/mm3 (1.2-3.4); LYMPH % 17.3 % (20.0-51.0); MEAN CELL VOLUME 89 fl (80.0-100.0); MEAN CORPUSCULAR HGB CONC 31 g/dl (33.0-37.0); MEAN PLATELET VOLUME 10.7 fl (7.4-10.4); MONO # 0.3 K/mm3 (0.1-0.6); PLATELET COUNT 253 K/mm3 (130-400); RED BLOOD COUNT 3.24 M/mm3 (4.10-5.30); REDCELL DISTRIBUTION WIDTH-CV 14.3 % (11.5-14.5)
[2021-06-19 06:36] LABS: HEMATOCRIT 28.7 % (37.0-47.0); HEMOGLOBIN 8.8 g/dl (12.5-16.0); MEAN CORPUSCULAR HEMOGLOBIN 27 pg (27-31)
[2021-06-19 06:42] LABS: ALBUMIN 2.5 gm/dL (3.4-4.8); BILIRUBIN,TOTAL 0.2 mg/dL (0.2-1.2); CALCIUM 8.2 mg/dL (8.4-10.2); CREATININE, serum 2.26 mg/dL (0.57-1.11); POTASSIUM 4.5 mmol/L (3.5-4.5); TOTAL PROTEIN 7.6 gm/dL (6.2-8.1)
[2021-06-19 07:49] VITALS: BP 143/81; PULSE 76; TEMP 97.8
--- NOTE | 2021-06-19 11:27 | NUR ---
PT RESTING UPON ENTRY THIS MORNING. ALERT AND ORIENTED BUT IS STILL SLEEPY AT TIMES. PT RATES PAIN AT INCISION SITES 7/10, BUT DOES NOT WANT PAIN MEDICATION. APPLIED ICE TO THE SITE TO SEE IF THE PAIN WOULD DECREASE. VITAL SIGNS STABLE. SHIFT ASSESSMENT COMPLETED. PT HAS A LEFT BELOW KNEE AMPUTATION. 2+ PULSE ON RIGHT FOOT. MEDICATION ADMINISTERED AND PT EDUCATED. PT REPORTS NO CONCERNS AT THIS TIME. WILL CONTINUE TO MONITOR.
[2021-06-19 12:03] VITALS: BP 112/62; PULSE 66; TEMP 98.1
--- NOTE | 2021-06-19 13:42 | NUR ---
Health Services Director attended clinical rounds with the team and patient will likely discharge tomorrow. SW contacted Sandy at [facility] to provide update. SW attempted to contact patient's daughter, however the voicemail box was full so SW was unable to leave a message.
--- NOTE | 2021-06-19 14:55 | NUR ---
Leland with physical therapy approached this case management social worker and advised that patient is open to being screened for rehab placement at [facility]. Leland states that patient is not agreeable to a [facility] facility. Worker contacted [place] with [facility] and gave a referral. Worker collaborated with Zoraida case management social worker, regarding the above information.
[2021-06-19 16:23] VITALS: BP 123/70; PULSE 69; TEMP 99
--- NOTE | 2021-06-19 16:58 | NUR ---
PT HAD UN-EVENTFUL DAY, NO ADVERSE EVENTS DURING THE SHIFT TODAY. ZOFRAN PRN X1 ADMINISTERED TODAY FOR NAUSEA. PT REPORTS NAUSEA IS BETTER. GOOD FOOD INTAKE, TOLERATING FOOD WELL. LAP SITES ARE CLEAN AND DRY. PT REPORTS TENDERNESS AT LAP SITES, BUT DOES NOT WANT PAIN MEDICATIONS. WILL CONTINUE TO MONITOR BOWEL SOUNDS. PT DID NOT HAVE A BOWEL MOVEMENT DURING THE DAY SHIFT TODAY. PT RESTING IN BED NOW. NO QUESTIONS REPORTED. NO CONCERNS AT THIS TIME, WILL CONTINUE TO MONITOR.
--- NOTE | 2021-06-19 17:32 | NUR ---
HAD PT GET UP TO USE BSC. PT VOIDED LARGE AMOUNT. PT STILL REPORTS NO FLATUS. BOWEL SOUNDS ARE ACTIVE BUT HYPOACTIVE. PT SLEEPY, BUT ALERT AND ORIENTED WHEN YOU SPEAK TO HER.
[2021-06-19 20:40] VITALS: BP 106/57; PULSE 73; TEMP 98.5
--- NOTE | 2021-06-19 20:40 | NUR ---
Patient is sleeping in bed, easily arousable. Alert and oriented X4, VSS. Incisions dry, clean, intact. Covered with bandaid. Telemetry in place, NSR. Assessment completed, medications provided. Left wrist IV discontinued, not working. No other needs at this time. Call light within reach.
[2021-06-20 00:42] VITALS: BP 128/74; PULSE 72; TEMP 99
[2021-06-20 04:28] VITALS: BP 133/69; PULSE 64; TEMP 97.9
--- NOTE | 2021-06-20 05:34 | NUR ---
Patient has been stable along the night. No complains of pain, nausea or vomiting. VSS. Report will be given to day RN.
[2021-06-20 06:42] LABS: BASO % 0.5 % (0.0-2.0); EOS # 0.2 K/mm3 (0.0-0.7); EOS % 3.5 % (0.0-4.0); GRAN # 2.8 K/mm3 (1.4-6.5); GRAN % 46.1 % (42.2-75.2); LYMPH # 2.5 K/mm3 (1.2-3.4); LYMPH % 41.1 % (20.0-51.0); MEAN CELL VOLUME 87 fl (80.0-100.0); MEAN CORPUSCULAR HGB CONC 31 g/dl (33.0-37.0); MEAN PLATELET VOLUME 10.8 fl (7.4-10.4); MONO # 0.5 K/mm3 (0.1-0.6); MONO % 8.6 % (1.7-9.3); PLATELET COUNT 228 K/mm3 (130-400); RED BLOOD COUNT 2.73 M/mm3 (4.10-5.30)
[2021-06-20 06:49] LABS: HEMATOCRIT 23.8 % (37.0-47.0); HEMOGLOBIN 7.3 g/dl (12.5-16.0); MEAN CORPUSCULAR HEMOGLOBIN 27 pg (27-31)
[2021-06-20 06:58] LABS: CREATININE, serum 2.44 mg/dL (0.57-1.11); POTASSIUM 4.4 mmol/L (3.5-4.5)
[2021-06-20 08:12] VITALS: BP 123/69; PULSE 72; TEMP 98
--- NOTE | 2021-06-20 09:26 | NUR ---
PT ALERT AND ORIENTED UPON ENTRY THIS MORNING. SITTING UP EATING BREAKFAST. REPORTS MILD PAIN AT LAP INCISION SITES. ABDOMEN IS SOFT AND NON-DISTENDED. BOWEL SOUNDS ARE ACTIVE THIS MORNING. PT STATES SHE STILL HAS NOT PASSED FLATUS OR HAD A BOWEL MOVEMENT. APPETITE REMAINS ADEQUATE. SHIFT ASSESSMENT PERFORMED. MEDICATIONS ADMINISTERED AND EDUCATION PROVIDED. PT RESTING IN BED. PT STATED SHE DOES NOT NEED TO USE THE BATHROOM AT THIS TIME WHEN OFFERED. VITAL SIGNS STABLE AND BLOOD SUGARS STABLE. WILL CONTINUE TO MONITOR. NO CONCERNS AT THIS TIME.
[2021-06-20] MEDS ORDERED: FOLIC ACID 11 MG/TA1 PO (09:41)
--- NOTE | 2021-06-20 10:13 | NUR ---
Food Stand Manager collaborated with Kalli IPR Director who is going to decline referral at this time. SW attended clinical rounds and patient to be discharged home with Home Health services. Patient is agreeable to this plan. SW followed up with patient and confirmed she has a wheelchair at home and transportation home today. MERRITT contacted [facility] and faxed discharge orders. Discharge Plan: Home with [facility]
[2021-06-20 11:37] VITALS: BP 147/83; PULSE 69; TEMP 98.2
--- NOTE | 2021-06-20 13:10 | NUR ---
DISCHARGE INSTRUCTIONS PROVIDED REVIEWED AND PROVIDED TO PT AND AT BESIDE. REVIEWED NEW MEDICATIONS AND INSTRUCTIONS AND ANSWERED PT QUESTIONS. REMOVED PT'S LAC IV. TIP INTACT. REMOVED TELE MONITOR. PT DRESSED HERSELF. ASSISTED PT TO WHEELCHAIR AND WALKED HER AND OUT THE EMERGENCY ROOM ENTRANCE.
[2021-06-23] VITALS (63 sets, daily range): O2SAT 71–100
== END 2021-06-20 13:10 | disposition home health service (06) | DRG 987 ==
LOC: COL.ER 13:00 → ICU 18:39 → COL.ER 18:39 → MEDICAL 18:39 → ICU 06-16 15:01 → MEDICAL 06-20 13:10
PROVIDERS: Internal Medicine Critical Care Medicine; Physician Assistant; Student in an Organized Health Care Education/Training Program; Surgery; ADMIT Student in an Organized Health Care Education/Training Program
PROC: 0FT44ZZ Resection of Gallbladder, Percutaneous Endoscopic Approach (ICD-10-PCS; principal; 2021-06-18 11:45)
DX: E11.10 Type 2 diabetes mellitus with ketoacidosis without coma (principal); I50.31 Acute diastolic (congestive) heart failure; N17.9 Acute kidney failure, unspecified; I24.8 Other forms of acute ischemic heart disease; K80.10 Calculus of gallbladder with chronic cholecystitis without obstruction; I13.0 Hypertensive heart and chronic kidney disease with heart failure and stage 1 through stage 4 chronic kidney disease, or unspecified chronic kidney disease; E11.43 Type 2 diabetes mellitus with diabetic autonomic (poly)neuropathy; D64.9 Anemia, unspecified; E87.5 Hyperkalemia; F41.9 Anxiety disorder, unspecified; F32.A Depression, unspecified; K31.84 Gastroparesis; N18.9 Chronic kidney disease, unspecified; E11.22 Type 2 diabetes mellitus with diabetic chronic kidney disease; Z89.512 Acquired absence of left leg below knee; Z79.4 Long term (current) use of insulin; Z91.14 Patient's other noncompliance with medication regimen
CPT/HCPCS: 99223-AI; 99232-AI; 99233-AI; 99239; J0330; J0360; J0690; J1100; J1170; J1650; J1815; J2270; J2405; J2704; J3480; J7030; J7120

== ENCOUNTER 2021-07-15 08:48 | Inpatient (IN) | payer MEDICAID ==
[~2021-07-15 08:48] MED LIST changes: +AMLODIPINE BESYLATE/ PO; +CATAPRES-TTS 10.1 M1 TD; +COREG12.5 MG PO; +ERY-TAB500 MG PO; +FOLIC ACID 11 MG/TA1 PO; +GRALISE300 MG PO; +REGLAN 10MG10 MG/TAB PO; +SYNTHROID0.1 MG/TAB PO; +ZOLOFT 100MG100 MG PO
[2021-07-15 11:03] VITALS: BP 121/66; PULSE 61; TEMP 97.9
[2021-07-15 12:05] LABS: BASO % 0.4 % (0.0-2.0); EOS # 0.2 K/mm3 (0.0-0.7); EOS % 2.1 % (0.0-4.0); GRAN # 5.9 K/mm3 (1.4-6.5); GRAN % 73.6 % (42.2-75.2); LYMPH # 1.2 K/mm3 (1.2-3.4); LYMPH % 14.6 % (20.0-51.0); MEAN CELL VOLUME 90 fl (80.0-100.0); MEAN CORPUSCULAR HGB CONC 31 g/dl (33.0-37.0); MEAN PLATELET VOLUME 10.2 fl (7.4-10.4); MONO # 0.7 K/mm3 (0.1-0.6); MONO % 8.8 % (1.7-9.3); PLATELET COUNT 223 K/mm3 (130-400); RED BLOOD COUNT 2.92 M/mm3 (4.10-5.30); REDCELL DISTRIBUTION WIDTH-CV 14.6 % (11.5-14.5)
[2021-07-15 12:06] LABS: HEMATOCRIT 26.3 % (37.0-47.0); HEMOGLOBIN 8.1 g/dl (12.5-16.0); MEAN CORPUSCULAR HEMOGLOBIN 28 pg (27-31)
[2021-07-15 12:26] LABS: ALBUMIN 2.6 gm/dL (3.4-4.8); BILIRUBIN,TOTAL 0.3 mg/dL (0.2-1.2); CALCIUM 7.7 mg/dL (8.4-10.2); CREATININE, serum 4.9 mg/dL (0.57-1.11); POTASSIUM 4.5 mmol/L (3.5-4.5); TOTAL PROTEIN 6.9 gm/dL (6.2-8.1)
--- NOTE | 2021-07-15 12:47 | NUR ---
Patient transferred medical room 310 from [facility] with PICC in place. Nurse called in AIV services to assess PICC. PICC dressing change was completed today 07/15/2021 at [facility] prior to transfer. This RN assessed PICC, dressing appeared clean, dry, no redness, swelling, or drainage at insertion site. Both lumens flushed with 10 mls normal saline, blood return observed. Caps changed by this RN.
--- NOTE | 2021-07-15 14:32 | NUR ---
Patient arrived via EMS from [place]. Patient A&Ox4, and very pleasant. Only c/o pressure in her abdomen. Suki saw the patient and requested a bladder scan be done. Instructed to place temple is patient is retaining more than 350mL in bladder; Bladder scan completed and showed 236mL present. Patient denies feeling the urge to urinate. If patient does not void w/in the next 2hrs, this RN will rescan.
[2021-07-15 15:44] VITALS: BP 105/55; PULSE 61; TEMP 98.1
--- NOTE | 2021-07-15 16:57 | NUR ---
Bladder scan redone, 230mL remain in the bladder. Patient still denies any urge to urinate.
[2021-07-15 20:15] VITALS: BP 126/67; PULSE 61; TEMP 97.7
--- NOTE | 2021-07-15 21:54 | NUR ---
Patient assessed around 2024. Alert and oriented, and able to make needs known. Denies having pain and discomfort. PICC to RUE, IV fluids running per orders. INT to left AC. Denies SOB and dyspnea. LS CTA. On oxygen at 2 L/min via NC. HRR. Telemetry in place. BSAx4. No edema. Voices no questions, needs, or concerns at this time. In bed with call light within reach. Bed alarm on.
--- NOTE | 2021-07-15 22:10 | NUR ---
ROSIE Perry notified around 2044 that BP were soft and Metoprolol was held. Ok with hold. No new orders at this time.
[2021-07-15 23:44] VITALS: BP 133/66; PULSE 67; TEMP 98.6
--- NOTE | 2021-07-16 00:09 | NUR ---
Indwelling temple catheter placed per orders. Tolerated well. Urine sample sent to lab.
[2021-07-16 00:45] LABS: COLLECTION METHOD CLEAN CATCH
[2021-07-16 00:46] LABS: PH 5 (5-8); URINE APPEARANCE Turbid (CLEAR/HAZY); URINE BACTERIA Many /hpf (NONE SEEN); URINE BILIRUBIN Negative (NEGATIVE); URINE BLOOD 1+ (NEGATIVE); URINE COLOR Yellow (YELLOW); URINE GLUCOSE 1+ (NEGATIVE); URINE KETONE Negative (NEGATIVE); URINE LEUKOCYTE ESTERASE 3+ (NEGATIVE); URINE NITRATE Negative (NEGATIVE); URINE PROTEIN(semi-quant) 2+ (NEGATIVE); URINE RBC >50 /hpf (0-2); URINE UROBILINOGEN Negative (NEGATIVE); URINE WBC >50 /hpf (0-2)
[2021-07-16 04:35] VITALS: BP 156/76; PULSE 68; TEMP 98.9
--- NOTE | 2021-07-16 05:47 | NUR ---
Patient denies having pain and discomfort. Continues on IV fluids per orders. Labs obtained from PICC per protocol. Voices no questions, needs, or concerns at this time. In bed with call light within reach.
[2021-07-16 06:20] LABS: BASO % 0.5 % (0.0-2.0); EOS # 0.3 K/mm3 (0.0-0.7); EOS % 4.4 % (0.0-4.0); GRAN # 3.7 K/mm3 (1.4-6.5); GRAN % 60.9 % (42.2-75.2); LYMPH # 1.5 K/mm3 (1.2-3.4); LYMPH % 24.6 % (20.0-51.0); MEAN CELL VOLUME 91 fl (80.0-100.0); MEAN CORPUSCULAR HGB CONC 31 g/dl (33.0-37.0); MEAN PLATELET VOLUME 10.5 fl (7.4-10.4); MONO # 0.6 K/mm3 (0.1-0.6); MONO % 9.3 % (1.7-9.3); PLATELET COUNT 223 K/mm3 (130-400); REDCELL DISTRIBUTION WIDTH-CV 14.6 % (11.5-14.5)
[2021-07-16 06:21] LABS: HEMATOCRIT 24.5 % (37.0-47.0); HEMOGLOBIN 7.6 g/dl (12.5-16.0); MEAN CORPUSCULAR HEMOGLOBIN 28 pg (27-31)
[2021-07-16 06:52] LABS: ALBUMIN 2.6 gm/dL (3.4-4.8); CALCIUM 8.2 mg/dL (8.4-10.2); CREATININE, serum 4.55 mg/dL (0.57-1.11); MAGNESIUM 2.2 mg/dL (1.6-2.6); PHOSPHOROUS 5.8 mg/dL (2.3-4.7); POTASSIUM 4.4 mmol/L (3.5-4.5)
[2021-07-16] MEDS ORDERED: DULCOLAX STOOL100 MG PO (08:26)
[2021-07-16] MEDS ORDERED: ASPIRIN 81M81 MG/TA2 PO (08:26)
[2021-07-16] MEDS ORDERED: LEVEMIR SQ (08:29)
[2021-07-16] MEDS ORDERED: NORVASC 5MG5 MG/TAB PO (08:31)
[2021-07-16 08:33] VITALS: BP 180/88; PULSE 73; TEMP 98
[2021-07-16] MEDS ORDERED: ZESTRIL 20MG TA20 MG PO (08:33)
[2021-07-16] MEDS ORDERED: ULTRAM 50MG TAB50 MG PO (08:34)
--- NOTE | 2021-07-16 09:30 | NUR ---
Patient laying in bed upon entering the room. Breakfast ordered. Patient denies any concerns this morning and appears to be doing well. States she does have a slight headache, but it is not bothering her too bad. Bed alarm is on, call light is w/in reach.
--- NOTE | 2021-07-16 09:30 | NUR ---
Initial visit; Patient thanked Advanced Manufacturing Associate for looking in on her and offering prayer and God's blessings.
--- NOTE | 2021-07-16 10:03 | NUR ---
Social Work student met with patient to discuss discharge planning. Patient lives in [place] with her , Rayshawn(ph#[phone]). Patient sees Dr. Ishmael Rios for primary care, and she receives her medications from [facility] pharmacy in [place]. Patient states that she has difficulties with "some of the medications." Patient utilizes a walker, wheelchair, and a cane for durable medical equiptment, but states that she mainly uses the wheelchair. Patient does not utilize any oxygen needs at home. Patient needs assistance while performing her ADL's. Patient states she receives this help from her and her daughter, Amanda Mcgraw. Patient states that she has filled out a DPOA-HC prior to her current stay at the hospital, and that it lists her , Rayshawn, and both her daughters, Amanda and Jose. *Discharge plan: home pending PT/OT*
[2021-07-16 12:20] VITALS: BP 177/88; PULSE 78; TEMP 98
[2021-07-16 16:00] VITALS: BP 155/79; PULSE 69; TEMP 97.9
--- NOTE | 2021-07-16 16:29 | NUR ---
Patient tested for nasal MRSA, as a previous negative was on the chart from 06/18. Nasal MRSA came back positive. Patient placed on contact precautions. Patient has been resting today, did c/o mild nausea, but went right back to sleep after being woken up.
[2021-07-16 19:33] VITALS: BP 135/73; PULSE 66; TEMP 98.8
--- NOTE | 2021-07-16 22:19 | NUR ---
Patient assessed around 2119. Alert and oriented x 4, and able to make needs known. Denies having pain and discomfort. Patient on oxygen at 1 L/min via NC, 98%. Oxygen taken off. 96%. Denies SOB and dyspnea. LS CTA in upper lobes, diminished in lower. HRR. PICC to RUE. IV fluids running per orders. BSAx4. Indwelling temple catheter patent, draining cloudy yellow urine. Voices no questions, needs, or concerns at this time. In bed with call light within reach. High fall risk precautions in place.
[2021-07-17] VITALS (8 sets, daily range): BP systolic 110–196; BP diastolic 56–94; PULSE 67–94; TEMP 97.3–98.8
--- NOTE | 2021-07-17 05:32 | NUR ---
Patient has denied pain and discomfort this shift. Remains on room air. IV fluids continue per orders. In bed with call light within reach. Bed alarm on.
[2021-07-17 06:47] LABS: BASO % 0.4 % (0.0-2.0); EOS # 0.2 K/mm3 (0.0-0.7); EOS % 4.1 % (0.0-4.0); GRAN # 2.9 K/mm3 (1.4-6.5); GRAN % 58.8 % (42.2-75.2); LYMPH # 1.2 K/mm3 (1.2-3.4); LYMPH % 25.2 % (20.0-51.0); MEAN CELL VOLUME 88 fl (80.0-100.0); MEAN CORPUSCULAR HGB CONC 32 g/dl (33.0-37.0); MEAN PLATELET VOLUME 10.8 fl (7.4-10.4); MONO # 0.6 K/mm3 (0.1-0.6); MONO % 11.5 % (1.7-9.3); PLATELET COUNT 237 K/mm3 (130-400); RED BLOOD COUNT 2.71 M/mm3 (4.10-5.30); REDCELL DISTRIBUTION WIDTH-CV 14.4 % (11.5-14.5)
[2021-07-17 06:51] LABS: HEMATOCRIT 23.8 % (37.0-47.0); HEMOGLOBIN 7.5 g/dl (12.5-16.0); MEAN CORPUSCULAR HEMOGLOBIN 28 pg (27-31)
[2021-07-17 07:02] LABS: ALBUMIN 2.6 gm/dL (3.4-4.8); CALCIUM 8.4 mg/dL (8.4-10.2); CREATININE, serum 2.91 mg/dL (0.57-1.11); MAGNESIUM 2.1 mg/dL (1.6-2.6); PHOSPHOROUS 4.1 mg/dL (2.3-4.7); POTASSIUM 4.6 mmol/L (3.5-4.5)
--- NOTE | 2021-07-17 09:22 | NUR ---
DROP WIRE ALIGNER informed this RN that patient's BP was 200's/90's. Manual taken. Retake running 190's/90's. Patient C/O of an headache rated 8/10 and N/V. ROSIE Fields notified. PRN Zofran and Hydralazine ordered and administered. Patient unable to tolerate PO medications at this time. Will attempt at a later time. PICC line in place, flushes with good blood return. Phelps catheter in place. Securment device in use. Patient denies any further pain, discomfort, SOA, or further needs at this time. Call light in reach. Fall percautions in place.
--- NOTE | 2021-07-17 14:33 | NUR ---
Message left for Verito at [facility] SW notifying her that the patient could possibly be ready for dc in the next 24-48 hours and that PT is recommending that she go back to them for continued treatment.
--- NOTE | 2021-07-17 18:00 | NUR ---
This RN held patient's insulin due to the inability to tolerate PO. MARILY Leija aware.
--- NOTE | 2021-07-17 18:00 | NUR ---
Patient has had a rough day. Patient has been C/O 10/10 pain in her head and abd. Provider contacted in regards to this pain. Orders for PRN pain medications placed. Medications administered per orders. Patient has not been able to tolerate PO medications and food. PRN zofran given as ordered. Family updated on patient's plan of care. Sprinkler Installer from [facility] contacted this RN about patients family contacting them in regards to seeking a GI doctor from their facility because family did not feel as if adequate care and pain control were being provided. Dr. Mcmahan notified. Patient is currently resting in bed. VSS. Patient A&O. Neuro checks WNL. Call light in reach. Fall percautions in place.
[2021-07-18] VITALS (7 sets, daily range): BP systolic 105–185; BP diastolic 53–89; PULSE 60–72; TEMP 97.6–98.3
--- NOTE | 2021-07-18 00:01 | NUR ---
Patient assessed around 193. Alert and oriented, and able to make needs known. Complaining of abdominal pain. Given IV Reglan per orders. PICC to RUE. Denies SOB and dyspnea. LS CTA. HRR. Telemetry in place. BSAx4. Indwelling temple catheter with yellow urine with sediment. Patient BP remains elevated. Given PRN Hydralazine per orders. Dr. Small in to see patient and put in new orders. Called Pharmacy to clarify Reglan dose due to poor kidney function. Had pharmacy and Dr. Small talk and orders updated. Patient given PRN APAP and Zofran for pain/nausea. Spoke with Dr. Mcmahan about pain management. Stated that narcotics actually make gastroporesis worse. Updated patient who voiced understanding. In bed with call light within reach. Bed alarm on.
--- NOTE | 2021-07-18 05:52 | NUR ---
Patient has been complaining of abdominal pain this shift. Recieved scheduled IV Regland and Protonix per orders, as well as PRN APAP and Zofran. Patient's BP elevated and given PRN IV Hydralazine per orders. Dr. Mcmahan aware of pain to abdomen. No further orders recieved. Patient in bed with call light within reach. Bed alarm on.
[2021-07-18 06:21] LABS: BASO # 0.1 K/mm3 (0.0-0.2); BASO % 0.9 % (0.0-2.0); EOS # 0.3 K/mm3 (0.0-0.7); EOS % 6.3 % (0.0-4.0); GRAN # 3.1 K/mm3 (1.4-6.5); GRAN % 59.2 % (42.2-75.2); LYMPH # 1.3 K/mm3 (1.2-3.4); LYMPH % 23.7 % (20.0-51.0); MEAN CELL VOLUME 91 fl (80.0-100.0); MEAN CORPUSCULAR HGB CONC 30 g/dl (33.0-37.0); MEAN PLATELET VOLUME 11.1 fl (7.4-10.4); MONO # 0.5 K/mm3 (0.1-0.6); MONO % 9.5 % (1.7-9.3); PLATELET COUNT 284 K/mm3 (130-400); RED BLOOD COUNT 3.02 M/mm3 (4.10-5.30); REDCELL DISTRIBUTION WIDTH-CV 14.6 % (11.5-14.5)
[2021-07-18 06:26] LABS: HEMATOCRIT 27.6 % (37.0-47.0); HEMOGLOBIN 8.4 g/dl (12.5-16.0); MEAN CORPUSCULAR HEMOGLOBIN 28 pg (27-31)
[2021-07-18 06:48] LABS: ALBUMIN 2.9 gm/dL (3.4-4.8); CALCIUM 8.4 mg/dL (8.4-10.2); CREATININE, serum 2.33 mg/dL (0.57-1.11); MAGNESIUM 1.8 mg/dL (1.6-2.6); PHOSPHOROUS 3.5 mg/dL (2.3-4.7); POTASSIUM 4.7 mmol/L (3.5-4.5)
--- NOTE | 2021-07-18 09:30 | NUR ---
Shift assessment complete. Pt sitting up in bed. A&Ox4. Reports 8/10 pain to abdomen and intermittent nausea. Reports unable to tolerate PO intake since Thursday. Verbal order from to administer novolog and levemir as scheduled. Abdomen soft, nontender, rounded. Bowel sounds audible, hypoactive LUQ. One time dose of IV morphine given per orders. BPs stable this morning. Pt denies needs at this time and would like to rest. Continuing to monitor.
--- NOTE | 2021-07-18 10:28 | NUR ---
Obdulia, at [facility], states that they are declining the patient. She states that their provider does not want her back. The patient was ambulating 500 ft, before she transferred to our hospital. She states that they also feel that with the patient's insulin requirements are too high level for them and the patient's daughter also threatened to deanna them, due to feeling like they were not providing good enough care to her.
--- NOTE | 2021-07-18 13:02 | NUR ---
Received report that patient and were requesting patient be discharged so that she could go to another facility. I talked with Evangelina, she was under the assumption that her was working on getting her in to see a doctor in [place] to get a gastric pacemaker like her daughter. She states she is in a lot of pain and can't live like this. I asked her if she would be willing to transfer or at least stay to get oxygen set up. She is hesitant but verbalized understanding that leaving without oxygen could cause her to get worse. Call made to patient's , Rayshawn, to seek clarification. He states that his daughter saw Dr. Clifton Hui in [facility] but that he has not contacted anyone about taking over his 's care. He knows she wants to be discharged but they would be willing to transfer to another [facility] if there is a doctor that can perform the procedure. I provided education to Rayshawn that it would take some time to find an accepting doctor and that his may not even be a candidate for a gastric pacemaker. He asked that we still try. I notified the hospitalist team and primary nurse of these conversations. Plan is for Dr. Keating to call Rayshawn directly.
--- NOTE | 2021-07-18 18:37 | NUR ---
Pt reporting better pain relief throughout day. Had a medium watery bowel movement this afternoon. Blood sugars and BPs stable.
--- NOTE | 2021-07-18 19:58 | NUR ---
PT with low blood glucose 47 reported by aid. Food provided. Reported to Dr Akbar Mcmahan, ordered implement hypoglycemic protocol.
--- NOTE | 2021-07-18 22:00 | NUR ---
Patient is resting in bed, alert and oriented x 4, VSS. Denies pain right now. Telemetry in place, NSR. Assessment completed, medication provided. No other needs at this time. Call [facility] within reach.
[2021-07-19 03:53] VITALS: BP 158/76; PULSE 65; TEMP 97.9
[2021-07-19 05:05] LABS: BASO % 0.9 % (0.0-2.0); EOS # 0.3 K/mm3 (0.0-0.7); EOS % 7.1 % (0.0-4.0); GRAN # 2.1 K/mm3 (1.4-6.5); GRAN % 50.1 % (42.2-75.2); LYMPH # 1.2 K/mm3 (1.2-3.4); LYMPH % 28.4 % (20.0-51.0); MEAN CELL VOLUME 89 fl (80.0-100.0); MEAN CORPUSCULAR HGB CONC 31 g/dl (33.0-37.0); MEAN PLATELET VOLUME 10.3 fl (7.4-10.4); MONO # 0.6 K/mm3 (0.1-0.6); PLATELET COUNT 276 K/mm3 (130-400); RED BLOOD COUNT 2.93 M/mm3 (4.10-5.30); REDCELL DISTRIBUTION WIDTH-CV 14.6 % (11.5-14.5)
[2021-07-19 05:06] LABS: HEMATOCRIT 26.2 % (37.0-47.0); HEMOGLOBIN 8.2 g/dl (12.5-16.0); MEAN CORPUSCULAR HEMOGLOBIN 28 pg (27-31)
[2021-07-19 05:25] LABS: ALBUMIN 2.8 gm/dL (3.4-4.8); CALCIUM 8.5 mg/dL (8.4-10.2); CREATININE, serum 2.02 mg/dL (0.57-1.11); MAGNESIUM 1.8 mg/dL (1.6-2.6); PHOSPHOROUS 2.6 mg/dL (2.3-4.7); POTASSIUM 4.1 mmol/L (3.5-4.5)
[2021-07-19 05:31] LABS: TROPONIN-I 0.01 ng/mL (0.00-0.033)
--- NOTE | 2021-07-19 05:47 | NUR ---
Patient has been complaining of abdominal pain. She was aunable to sleep. She was asking for morphine. It was explained why she can not get it. She expressed she has now chest pain. Dr. Webber was notified, EKG and labs ordered. Continue monitoring.
[2021-07-19 07:33] VITALS: BP 198/96; PULSE 66; TEMP 97.6
[2021-07-19] MEDS ORDERED: OMNICEF 300MG300 MG PO ×2 (09:00)
[2021-07-19] MEDS ORDERED: ZESTRIL 20MG TA20 MG PO (09:09)
[2021-07-19] MEDS ORDERED: NORVASC 5MG5 MG/TAB PO (09:09)
[2021-07-19 09:33] VITALS: BP 153/72; PULSE 64; TEMP 97.4
--- NOTE | 2021-07-19 09:48 | NUR ---
SW attended rounding with hospitalist and patient's RN. Patient's Rayshawn and daughter Angela present at bedside. Physician speaks to family that at this time the patient is needing care that is only provided by higher level facilities and that at this time there is not a facility in this states that provide a gastric pacemaker. Patients daughter asks why we're keeping her if were not doing anything for her. Physician states that they are waiting on the nephrology team to sign off. In the middle of the physicians conversation, the patients asks that i leave, " can i only have the doctor and the nurses in here". At this time i exit the room.
--- NOTE | 2021-07-19 10:21 | NUR ---
Notified by physician after meeting with the family that the family is wanting her discharged so they can take her to [place] to pursue a gastric pacemaker.
--- NOTE | 2021-07-19 10:47 | NUR ---
PATIENT SITTING EDGE OF BED, IN VISIBLE PAIN. EXPRESSING DESIRE TO LEAVE AMA. DISTRESSED AND ON THE PHONE WITH MULTIPLE SUPPORT PERSONS. SPOKE WITH PATIENT SISTER "PRUDENCE" REGUARDING PATIENT CARE AND UPDATES. PATIENT BP 198/96, IV HYDRALAZINE GIVEN, ALONG WITH MORNGING MEDS. 30 MINUTE RECHECK, BP 155/74.c PATIENT AGREEABLE TO MEDICATIONS UNTIL ARRIVED. DR. HOLLAND ORDERED 2MG IV MORPHINE FOR PATIENT PAIN. MEDICATION GIVEN, AUTHOR REMAINED BEDSIDE FOR 15MIN, AFTER ADMINISTRATION. PATIENT FELL ASLEEP RATHER QUICKLY FOLLOWING MEDICATION ADMINISTRATION. RESPIRATIONS STABLE. PATIENT AROUSABLE TO SPEECH, ORIENTED X4.
--- NOTE | 2021-07-19 11:39 | NUR ---
PICC LINE REMOVED, PRESSURE HELD FOR 7MIN. DRESSED, DC EDUCATION ON PICC LINE REMOVAL GIVEN.
[2021-07-19 12:01] VITALS: BP 142/69; PULSE 62; TEMP 97.6
[2021-07-19] MEDS ORDERED: MACRODANTIN100 PO (22:09)
[2021-07-19] MEDS ORDERED: MIRALAX PA17 GM/Dose PO (22:16)
== END 2021-07-19 12:10 | disposition home or self-care (01) | DRG 683 ==
LOC: MEDICAL 08:48
PROVIDERS: Internal Medicine Gastroenterology; ADMIT Internal Medicine
DX: N17.9 Acute kidney failure, unspecified (principal); I50.32 Chronic diastolic (congestive) heart failure; I13.0 Hypertensive heart and chronic kidney disease with heart failure and stage 1 through stage 4 chronic kidney disease, or unspecified chronic kidney disease; N39.0 Urinary tract infection, site not specified; J90 Pleural effusion, not elsewhere classified; J98.11 Atelectasis; E11.43 Type 2 diabetes mellitus with diabetic autonomic (poly)neuropathy; K31.84 Gastroparesis; E11.22 Type 2 diabetes mellitus with diabetic chronic kidney disease; N18.9 Chronic kidney disease, unspecified; F32.A Depression, unspecified; E03.8 Other specified hypothyroidism; D63.1 Anemia in chronic kidney disease; E11.649 Type 2 diabetes mellitus with hypoglycemia without coma; F41.9 Anxiety disorder, unspecified; D25.9 Leiomyoma of uterus, unspecified; B95.2 Enterococcus as the cause of diseases classified elsewhere; K42.9 Umbilical hernia without obstruction or gangrene; K59.09 Other constipation; Z87.891 Personal history of nicotine dependence; Z88.0 Allergy status to penicillin; Z89.512 Acquired absence of left leg below knee; Z23 Encounter for immunization
CPT/HCPCS: 99223-AI; 99233-AI; 99239; C9113; J0360; J0696; J1644; J1815; J2270; J2405; J2765; J7030